=== PATIENT | male | born 1950 | race Caucasian/White ===

== ENCOUNTER 2022-07-01 15:42 | Emergency (ER) | payer OTHER, BC ==
[~2022-07-01] VITALS: Ht 175.3 cm; Wt 97.5 kg
[2022-07-01 15:50] VITALS: BP_SYST 133
[2022-07-01 16:30] VITALS: BP_SYST 133
== END 2022-07-01 16:30 | disposition left against medical advice (07) ==
LOC: SED 15:42
DX: R50.9 Fever, unspecified (principal); R11.10 Vomiting, unspecified; Z53.21 Procedure and treatment not carried out due to patient leaving prior to being seen by health care provider